=== PATIENT | male | born 1945 | race Caucasian/White ===

== ENCOUNTER 2019-07-30 12:35 | Inpatient (IN) ==
--- NOTE | 2019-07-30 12:54 | Emergency Department Note ---
Disposition Clinical Impression: Stroke Qualifiers: CVA mechanism: unspecified Qualified Code(s): I63.9 - Cerebral infarction, unspecified Disposition: Admitted As Inpatient Condition: Fair Referrals: Sal Hutchison MD [Primary Care Provider] - Forms: ED Satisfaction Letter Time of Disposition: 16:01 Neuro HPI - General Chief Complaint: ED Neuro Symptoms/Deficit Stated Complaint: "facial droop" Time Seen by Provider: 07/30/19 12:40 Source: patient Limitations: no limitations Nursing Notes Reviewed: Yes Vital Signs Reviewed: Yes - History of Present Illness HPI Narrative: 74-year-old male presents emergency department with concern for slurred speech and right-sided facial droop. His last known well was 10 PM last night. No history of stroke in the past. Does have history of hypertension. Was compl aining of intermittent headaches over the last several days. - Related Data Home Medications: Home Medications Medication Instructions Recorded Confirmed Acetylcysteine [Nac] 500 mg PO TIDWM 10/19/18 10/19/18 Albuterol Sulfate [Ventolin Hfa] 2 puff IH Q6H PRN 10/19/18 10/19/18 Benztropine [Cogentin] 1 mg PO BID 10/19/18 10/19/18 BuPROPion XL (24 HR) [Wellbutrin 150 mg PO DAILY 10/19/18 10/19/18 Xl] Budesonide/Formoterol 160/4.5 2 puff IH BIDR 10/19/18 10/19/18 [Symbicort 160/4.5] Bupropion HCl [Wellbutrin Xl] 300 mg PO DAILY 10/19/18 10/19/18 Calcium Carbonate/Vitamin D3 1 tab PO BID 10/19/18 10/19/18 [Calcium 500 + Vit D Caplet] Carbidopa/Levodopa/Entacapone 1 tab PO TID 10/19/18 10/19/18 [Stalevo 150 Tablet] Citalopram Hydrobromide 10 mg PO DAILY 10/19/18 10/19/18 [Citalopram HBr] Docusate [Colace] 100 mg PO BID 10/19/18 10/19/18 Lisinopril [Zestril] 5 mg PO DAILY 10/19/18 10/19/18 Multivitamin [One Daily 1 tab PO DAILY 10/19/18 10/19/18 Multivitamin] OLANZapine [Olanzapine Odt] 20 mg PO HS 10/19/18 10/19/18 Omeprazole [PriLOSEC] 20 mg PO DAILY 10/19/18 10/19/18 Ropinirole HCl [Requip] 2 mg PO TID 10/19/18 10/19/18 Simvastatin [Zocor] 20 mg PO HS 10/19/18 10/19/18 Trihexyphenidyl [Artane] 2 mg PO BID 10/19/18 10/19/18 Umeclidinium [place] [Incruse 62.5 mcg IH DAILY 10/19/18 10/19/18 Ellipta] Vitamin E Acetate [Vitamin E] 400 unit PO DAILY 10/19/18 10/19/18 Allergies/Adverse Reactions: Allergies Allergy/AdvReac Type Severity Reaction Status Date / Time No Known Allergies Allergy Verified 10/19/18 13:34 All systems ED: reviewed and negative except as stated. Review of Systems: As Per HPI Constitutional: Denies: fever Cardiovascular: Denies: chest pain Respiratory: Denies: dyspnea Gastrointestinal: Denies: abdominal pain Genitourinary: Denies: dysuria Musculoskeletal: Denies: neck pain Neurological: Reports: headache. Denies: numbness, paresthesias Past Medical History - Past Medical History Attestation: Yes The following information was validated with the patient. Medical history: Reports: arthritis, asthma, COPD, GERD, migraine Surgical history: Reports: herniorrhaphy Psychiatric history: Reports: anxiety, depression - Social History Smoking Status: Former smoker Alcohol use: Reports: none Drug use: Reports: none Physical Exam - General Limitations: no limitations General appearance: alert - Head Head exam: normocephalic - Eye Eye exam: Present: EOMI - ENT ENT exam: mucous membranes moist - Neck Neck exam: Present: trachea midline - Chest Chest inspection: Present: symmetric chest wall rise - Respiratory Respiratory exam: Present: normal lung sounds bilaterally. Absent: respiratory distress, accessory muscle use - Cardiovascular Cardiovascular exam: Present: regular rate, normal rhythm, normal heart sounds - Abdominal Exam Abdominal exam: Present: soft, Non-Tender. Absent: distention, guarding, rebound, rigidity - Extremities Exam Extremities exam: Present: normal capillary refill - Back Exam Back exam: Present: full ROM - Neurological Exam Neurological exam: Present: alert, oriented X3 - Psychiatric Psychiatric exam: Present: normal affect, normal mood - Skin Skin exam: Present: warm, dry, intact, normal color. Absent: rash Course Vital Signs Temperature 98.2 F 07/30/19 12:36 Pulse Rate 83 07/30/19 12:36 Respiratory Rate 18 07/30/19 12:36 Blood Pressure 185/95 07/30/19 12:36 O2 Sat by Pulse Oximetry 95 07/30/19 12:36 Temperature 98.2 F 07/30/19 12:36 Pulse Rate 83 07/30/19 12:36 Respiratory Rate 18 07/30/19 12:36 Blood Pressure 165/99 07/30/19 15:12 O2 Sat by Pulse Oximetry 94 07/30/19 12:56 Oxygen Delivery Oxygen Delivery Room Air Neuro Symptoms/Deficit - MDM Narrative Medical decision making narrative: 72-year-old male presents emergency department with concern for ischemic stroke. NIH initially was 4. CT of head and initially did not reveal any evidence of intracranial hemorrhage. There was however, some concern for artifact of the occipital lobes that the radiologist was getting a good view of that area. He recommended repeat CT scanning of the head. The repeat scan of the head revealed possible occipital lobe infarct with more pronunciation on the left concerning for infarct. These changes not consistent with current symptoms of right-sided facial droop and mild slurred speech. Patient given aspirin here in the emergency department. Stroke symptoms had improved significantly and facial droop was a lot better. Blood pressure was also improved without any management. Patient admitted. [address] Romero who agreed that patient was out of the window for TPA. He did want us to look for large vessel occlusion with CT angiogram and stated that if patient had evidence of this, to have him shipped to [facility]. Head CT 07/30/19 12:50 IMPRESSION: Apparent low-attenuation in the bilateral occipital lobes, may be related to artifacts versus reversible encephalopathy syndrome. Acute ischemia is considered less likely. MRI brain or repeat CT head is recommended for further evaluation. 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 The results were reported to Dr. Ruffin at 1:32 p.m. on July 30, 2019. D/ / Jose Perez MD / Jose Perez MD Interpreting Provider: Jose Perez MD Head CTA 07/30/19 13:08 IMPRESSION: No acute intracranial hemorrhage or mass effect. Unchanged loss of mcfadden-white differentiation in the occipital lobes, more pronounced on the left, concerning for age-indeterminate infarct. Further evaluation with MRI is recommended. No intracranial large vessel occlusion. D/ / David Martinez MD / David Martinez MD Interpreting Provider: David Martinez MD Vital Signs Temperature 98.2 F 07/30/19 12:36 Pulse Rate 83 07/30/19 12:36 Respiratory Rate 18 07/30/19 12:36 Blood Pressure 185/95 07/30/19 12:36 O2 Sat by Pulse Oximetry 95 07/30/19 12:36 Temperature 98.2 F 07/30/19 12:36 Pulse Rate 83 07/30/19 12:36 Respiratory Rate 18 07/30/19 12:36 Blood Pressure 165/99 07/30/19 15:12 O2 Sat by Pulse Oximetry 94 07/30/19 12:56 Oxygen Delivery Oxygen Delivery Room Air - Lab Data Result diagrams: 07/30/19 13:11 07/30/19 13:11 Lab Results 07/30/19 07/30/19 07/30/19 Range/Units 12:51 12:51 12:52 WBC (4.3-11.1) K/mcL RBC (4.19-5.50) M/mcL Hgb (12.9-16.9) g/dL Hct (37.5-50.1) % MCV (83.0-100.0) fL MCH (28.0-33.3) pg MCHC (31.6-35.5) g/dL RDW (11.5-14.5) % Plt Count (140-400) K/mcL MPV (9.4-12.4) fL PT (9.4-12.1) Seconds INR APTT (26.0-36.0) Seconds Sodium (136-145) mEq/L Potassium (3.5-5.1) mEq/L Chloride (98-107) mEq/L Carbon Dioxide (23-29) mEq/L BUN (8-23) mg/dL Creatinine (0.70-1.30) mg/dL Est GFR ( Amer) (> 60) Est GFR (Non-Af Amer) (> 60) BUN/Creatinine Ratio (6-26) Glucose (70-105) mg/dL POC Glucose 47 L* 107 H 102 H (70-99) mg/dL Calculated Osmolality (280-300) Calcium (8.6-10.3) mg/dL Troponin I (< 0.04) ng/mL 07/30/19 07/30/19 07/30/19 Range/Units 13:11 13:11 13:11 WBC 7.4 (4.3-11.1) K/mcL RBC 4.84 (4.19-5.50) M/mcL Hgb 13.6 (12.9-16.9) g/dL Hct 40.2 (37.5-50.1) % MCV 83.1 (83.0-100.0) fL MCH 28.1 (28.0-33.3) pg MCHC 33.8 (31.6-35.5) g/dL RDW 13.1 (11.5-14.5) % Plt Count 221 (140-400) K/mcL MPV 11.2 (9.4-12.4) fL PT 11.7 (9.4-12.1) Seconds INR 1.0 APTT 36.1 H (26.0-36.0) Seconds Sodium 137 (136-145) mEq/L Potassium 3.5 (3.5-5.1) mEq/L Chloride 104 (98-107) mEq/L Carbon Dioxide 24 (23-29) mEq/L BUN 12 (8-23) mg/dL Creatinine 0.89 (0.70-1.30) mg/dL Est GFR ( Amer) > 60 (> 60) Est GFR (Non-Af Amer) > 60 (> 60) BUN/Creatinine Ratio 13 (6-26) Glucose 85 (70-105) mg/dL POC Glucose (70-99) mg/dL Calculated Osmolality 283 (280-300) Calcium 9.5 (8.6-10.3) mg/dL Troponin I < 0.03 (< 0.04) ng/mL - EKG Data EKG attestation: Yes I reviewed and interpreted this EKG. EKG results narrative: 12:55 Heart rate 82 bpm, NM interval 149 ms, QRS duration 117 also has, QT 296 ms, left axis deviation. Sinus rhythm with no ischemic ST changes. NIH Stroke Scale - Level of Consciousness LOC: Alert - LOC Questions LOC Questions: Answers one correctly - LOC Commands LOC Commands: Performs both correctly - Best Gaze Best Gaze: Normal - Visual Visual: No visual loss - Facial Palsy Facial Palsy: Partial, total, or near-total paralysis of lower face - Motor Arms Motor Arm-Left: No drift for 10 seconds Motor Arm-Right: No drift for 10 seconds - Motor Legs Motor Leg-Left: No drift for 5 seconds Motor Leg-Right: No drift for 5 seconds - Limb Ataxia Limb Ataxia: Normal, No Ataxia - Sensory Sensory: Normal - Best Language Best Language: No aphasia - Dysarthria Dysarthria: Mild, slurs some words - Extinction and Inattention Extinction and Inattention: Normal - NIHSS Total Score NIHSS Total Score: 4 TPA Checklist - LKW: 3-4.5 hrs Add. Warnings/Precautions Patient/family understanding: The patient/family members have been counseled and understood the risk, benefit, and alternatives of treatment. Critical Care Time Critical Care Time: Yes Total Critical Care Time: 35 Attestation: Medical care time 35 minutes managing patient's altered mental status. Attestation Statement - Attestation Attestation: Patient was seen with resident physician. I reviewed the history, physical, assessment and plan, and agree with the findings. I also personally evaluated this patient and had [id number] time with this patient. 74-year-old male presents emergency Department with a chief complaint of facial droop and slurred speech. Patient was last known well at 10 PM last night. Family member said they saw him today at 11 and he had the symptoms. They say he has been complaining of a headache for a week or so now. He said his speech is significantly worse than usual. He has had some drooping of the right side of his face. They deny other complaints at this time. Review systems as above remainder negative. Physical exam vital signs are stable. ENT is unremarkable. Heart regular rhythm and rate. Lungs are clear. Abdomen is soft and nontender. Extremities show no signs of traumatic injury. Neurologically patient has a facial droop on the right side of the face. He also has slurred speech. Strength is good the upper and lower extremities. Skin no rashes. Psych normal. ED course. Stroke alert was called primarily because and wanted to make sure the patient did not have a intercranial hemorrhage. At this point he is far enough out that he will qualify for thrombolytic therapy, but I did want to delay care any further than we had to. His initial NIH was about 4. And hemodynamically he was stable on arrival and throughout his stay. Workup was consistent with ischemic stroke. Patient's symptoms are actually improving throughout his stay. We spoke with the hospitalist service agreed to accept the patient for admission. I agree with the resident physician assessment and plan. Critical care time 35 minutes. ED procedures.I reviewed the patient's EKG as well as the resident physician interpretation and I agree with the findings.
[2019-07-30] MEDS ORDERED: Isovue-370 500 ML BOTTLE IVP ONE (13:08)
[2019-07-30] MEDS ORDERED: Metoclopramide 10 MG/2 ML VIAL IVP ONE (13:09)
[2019-07-30 13:27] LABS: Hematocrit 40.2 % (37.5-50.1); Hemoglobin 13.6 g/dL (12.9-16.9); Mean Corpuscular HGB Conc 33.8 g/dL (31.6-35.5); Mean Corpuscular Hemoglobin 28.1 pg (28.0-33.3); Mean Corpuscular Volume 83.1 fL (83.0-100.0); Mean Platelet Volume 11.2 fL (9.4-12.4); Platelet Count 221 K/mcL (140-400); Red Blood Count 4.84 M/mcL (4.19-5.50); Red Cell Distribution Width 13.1 % (11.5-14.5); White Blood Count 7.4 K/mcL (4.3-11.1)
[2019-07-30 13:37] LABS: Prothrombin Time 11.7 Seconds (9.4-12.1)
[2019-07-30 13:40] LABS: Activated Partial Thrombo Time 36.1 Seconds (26.0-36.0)
[2019-07-30 13:45] LABS: BUN/Creatinine Ratio 13 (6-26); Blood Urea Nitrogen 12 mg/dL (8-23); Calcium 9.5 mg/dL (8.6-10.3); Carbon Dioxide 24 mEq/L (23-29); Chloride 104 mEq/L (98-107); Glucose 85 mg/dL (70-105); Osmolality,Calculated 283 (280-300); Potassium 3.5 mEq/L (3.5-5.1); Sodium 137 mEq/L (136-145); Troponin I < 0.03 ng/mL (< 0.04); eGFR For African Americans > 60 (> 60); eGFR For Non-African Americans > 60 (> 60)
[2019-07-30] MEDS ORDERED: Aspirin 81 MG TAB.CHEW PO STA (14:48)
[2019-07-30] MEDS ORDERED: Naloxone 0.4 MG/ML INJ IVP PRN (16:46)
[2019-07-30] MEDS ORDERED: Sennosides/Docusate Sodium TABLET PO PRN (16:55)
--- NOTE | 2019-07-30 17:02 | Internal Med History&Physical ---
Date of Encounter: 07/30/19 Time of Encounter: 16:40 Internal Medicine - H&P: HPI Chief complaint: Facial droop. Admitted From: Emergency Dept Plans for Post Hospital Care: Home History of present illness: Mr. Winters is a 74 year old male with a past medical history significant for Parkinson disease, anxiety and depression, COPD presented to the hospital because of the concern for the slurred speech and right-sided facial droop. Patient is not the best historian, so history is limited. According to the chart, patient was noticed to have right-sided facial droop and mild slurred speech by the family and was brought to the emergency department. His last well-known time was 10 PM last night. Patient endorses that he was feeling dizzy when he woke up in the morning. Denies fall, head injury, and history of stroke, history of CAD, history of PAD. Endorses history of hypertension, hyperlipidemia. In the emergency department, patient was found to have right- sided facial droop. Stroke alert was called. CT scan of the head was obtained which was concerning for left occipital lobe infarct. Patient was out of the TPA window, so it was not given. As per the recommendations of the neurologist on-call, CT angiogram was obtained stat to see the patient exhibited transfer to [facility]. CT angiogram negative for any critical stenosis. Laboratory workup did not show any gross abnormalities. Over time, patient facial droop on the right side improved. At the time of my interview, patient denies any complaints. Denies fever, chills, rigors, chest pain, shortness of breath. He does endorse mild dizziness. He has been walking with assist, has been doing fine. His facial droop is very minimal at the best. He has been given 325 mg of aspirin in the emergency department. Past Med Surg Social Fam HX - Past Medical History Medical history: arthritis, asthma, COPD, GERD, migraine Additional medical history: parkinsons. RLS Psychiatric history: anxiety, depression - Past Surgical History Surgical History: herniorrhaphy Additional surgical history: rt knee - Social History Smoking Status: Former smoker Alcohol use: none Drug use: none - Additional Family History Additional family history: Reviewed and non contributory Internal Medicine - H&P: Meds Albuterol Sulfate [Ventolin Hfa] 2 puff IH Q6H PRN 10/19/18 [History] Benztropine [Cogentin] 1 mg PO BID 10/19/18 [History] BuPROPion XL (24 HR) [Wellbutrin Xl] 150 mg PO DAILY 10/19/18 [History] Budesonide/Formoterol 160/4.5 [Symbicort 160/4.5] 2 puff IH BIDR 10/19/18 [History] Bupropion HCl [Wellbutrin Xl] 300 mg PO DAILY 10/19/18 [History] Calcium Carbonate/Vitamin D3 [Calcium 500 + Vit D Caplet] 1 tab PO BID 10/19/18 [History] Carbidopa/Levodopa/Entacapone [Stalevo 150 Tablet] 1 tab PO TID 10/19/18 [History] Citalopram Hydrobromide [Citalopram HBr] 10 mg PO DAILY 10/19/18 [History] Docusate [Colace] 100 mg PO DAILY 10/19/18 [History] Lisinopril [Zestril] 5 mg PO DAILY 10/19/18 [History] Multivitamin [One Daily Multivitamin] 1 tab PO DAILY 10/19/18 [History] OLANZapine [Olanzapine Odt] 20 mg PO HS 10/19/18 [History] Omeprazole [PriLOSEC] 20 mg PO DAILY 10/19/18 [History] Ropinirole HCl [Requip] 2 mg PO TID 10/19/18 [History] Simvastatin [Zocor] 20 mg PO HS 10/19/18 [History] Umeclidinium [place] [Incruse Ellipta] 62.5 mcg IH DAILY 10/19/18 [History] Vitamin E Acetate [Vitamin E] 400 unit PO DAILY 10/19/18 [History] Acetylcysteine [Z-Wcbviu-q-Cysteine] 600 mg PO TID 07/30/19 [History] Aspirin [Lo-Dose Aspirin EC] 81 mg PO DAILY 07/30/19 [History] Sennosides/Docusate Sodium [Docusate Sodium-Senna Tablet] 1 each PO DAILY PRN 07/30/19 [History] Trihexyphenidyl HCl 5 mg PO DAILY 07/30/19 [History] Allergy/AdvReac Type Severity Reaction Status Date / Time No Known Allergies Allergy Verified 10/19/18 13:34 All Systems PM: A 10-system review of systems was performed and is negative for pertinent findings except as documented above in the HPI. Review of systems: General: Negative for fever, chills, rigors. HEENT: Negative for neck swelling, discharge from nose, discharge from ears. EYES: Negative for any discharge from the eyes. Respiratory: Negative for shortness of breath, orthopnea, exertional dyspnea. Cardiovascular: Negative for chest pain, shortness of breath, orthopnea, PND. Gastrintestical: Negative for diarrhea, constipation, blood in stools. Genitourinary: Negative for dysuria, hematuria, nocturia, increased frequency of urine. Hematological: Negative for blood loss, negative for active cancer. Neurological: See HPI Endocrinology: Negative for constipation, polyuria, polydipsia. Integumentary: Negative for rash, wounds, ulcers. Psychiatric: Histroy of anxiety and depression, currnetly lookign calm - Constitutional Vitals: Temp Pulse Resp BP Pulse Ox 98.2 F 83 18 165/99 94 07/30/19 12:36 07/30/19 12:36 07/30/19 12:36 07/30/19 15:12 07/30/19 12:56 Exam: General: Alert and oriented, no physical distress, able to follow commands. HEENT: No thyromegaly, no lymphadenopathy, no discharge. Eyes: No discharge. Normal conjuctiva, no icterus Respiratory: Normal vesicular breathing, no added sounds, breathing equal in both sides. CVS: Normal heart sounds, no murmurs, regular rhthm, no edema Extremities: No peripheral edema, peripheral pulses intact. Lymph nodes: No lymphadenopathy Gastrointestinal: Soft, nontender abdomen, normal abdominal sounds. No distention noted. Genitourinary: No paravertebral tenderness. Skin: No rash, ulcers or wound. Neurological: Alert and oriented. Power 5/5 in all extremities, no loss sensations appreciatd in extremities or face. Cranial nerves II-XII intact. No facial droop appreciated at this point. Reflexes 2+ at knees, ankles, biceps and triceps. Finger to nose test normal. Internal Med - H&P Results - Labs CBC & Chem 7: 07/30/19 13:11 07/30/19 13:11 Labs: Short CBC 07/30/19 Range/Units 13:11 WBC 7.4 (4.3-11.1) K/mcL Hgb 13.6 (12.9-16.9) g/dL Hct 40.2 (37.5-50.1) % Plt Count 221 (140-400) K/mcL BMP 07/30/19 13:11 Sodium 137 Potassium 3.5 Chloride 104 Carbon Dioxide 24 BUN 12 Creatinine 0.89 Glucose 85 Calcium 9.5 Cardiac Enzymes 07/30/19 Range/Units 13:11 Troponin I < 0.03 (< 0.04) ng/mL - Impressions ITS Impressions Head CT 07/30/19 12:50 IMPRESSION: Apparent low-attenuation in the bilateral occipital lobes, may be related to artifacts versus reversible encephalopathy syndrome. Acute ischemia is considered less likely. MRI brain or repeat CT head is recommended for further evaluation. 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 The results were reported to Dr. Ruffin at 1:32 p.m. on July 30, 2019. D/ / Jose Perez MD / Jose Perez MD Interpreting Provider: Jose Perez MD Head CTA 07/30/19 13:08 IMPRESSION: No acute intracranial hemorrhage or mass effect. Unchanged loss of mcfadden-white differentiation in the occipital lobes, more pronounced on the left, concerning for age-indeterminate infarct. Further evaluation with MRI is recommended. No intracranial large vessel occlusion. D/ / David Martinez MD / David Martinez MD Interpreting Provider: David aMrtinez MD - Assessment and Plan (1) CVA (cerebral vascular accident) Current Visit: Yes Status: Acute Assessment and plan: Presented with a slurred speech and facial droop. Currently symptoms have improved. CT scan of the head concerning for occipital lobe infarct with mode pronunciation on the left as per neurologist review. Also showed moderate ventriculomegaly. CTA negative for any critical stenosis. Patient symptoms continues to improve. He has been given 325 mg of aspirin in the emergency department. EKG negative for ischemic chages or arrythmias Neurological checks and [facility] Continous telemetry Obtain MRI Obtain echo Neurology consult Continue aspirin COntinue statins Obtain lipid panel Obtain hga1c Continue to monitor Qualifiers: CVA mechanism: unspecified Qualified Code(s): I63.9 - Cerebral infarction, unspecified (2) Depression Current Visit: Yes Status: Acute Assessment and plan: Hx of depression, likely due to parkinsons disease Continue bupropion and citalopram Qualifiers: Depression Type: unspecified Qualified Code(s): F32.9 - Major depressive disorder, single episode, unspecified (3) Parkinson disease Current Visit: Yes Status: Acute Assessment and plan: Hx of parkisnosn disease COntinue home meds (4) COPD (chronic obstructive pulmonary disease) Current Visit: Yes Status: Acute Assessment and plan: NOt an active smoker currnetly NOt in exacerbation Continue home inhalers Qualifiers: COPD type: unspecified COPD Qualified Code(s): J44.9 - Chronic obstructive pulmonary disease, unspecified (5) Hyperlipidemia Current Visit: Yes Status: Acute Assessment and plan: Continue simvastatin Qualifiers: Hyperlipidemia type: unspecified Qualified Code(s): E78.5 - Hyperlipidemia, unspecified (6) Constipated Current Visit: Yes Status: Acute Assessment and plan: Continue senna and colace Qualifiers: Constipation type: unspecified constipation type Qualified Code(s): K59.00 - Constipation, unspecified (7) GERD (gastroesophageal reflux disease) Current Visit: Yes Status: Acute Assessment and plan: Continue home omeprazole Qualifiers: Esophagitis presence: esophagitis presence not specified Qualified Code(s): K21.9 - Gastro-esophageal reflux disease without esophagitis (8) Hypertension Current Visit: Yes Status: Acute Assessment and plan: BP in reasonable range Cont lisinopril Qualifiers: Hypertension type: essential hypertension Qualified Code(s): I10 - Essential (primary) hypertension (9) DVT prophylaxis Current Visit: Yes Status: Acute Assessment and plan: Radha solano - Time Spent With Patient Total time spent is greater than 50% in coordination of care (as documented) at patient's floor/unit and/or counseling patient:
[2019-07-30] MEDS ORDERED: Ipratropium/Albuterol Neb 3 ML IH PRN (17:31)
[2019-07-30] MEDS: Budesonide/Formoterol 160/4.5 1 PUFF INH IH SCH (20:02)
[2019-07-30] MEDS: OLANZapine 10 MG TAB.RAPDIS PO SCH (20:25)
[2019-07-30] MEDS: *HR* Acetylcysteine 20% 600 MG/3 ML ORAL SYRINGE PO SCH (20:26)
[2019-07-30] MEDS: rOPINIRole 1 MG TABLET PO SCH (20:26)
[2019-07-30] MEDS: Carbidopa/Levodopa 25/100 TABLET PO SCH (21:15)
[2019-07-31 04:40] LABS: Basophils % 0.3 %; Eosinophils # 0.1 K/mcL (0.0-0.6); Eosinophils % 0.7 %; Hematocrit 39.4 % (37.5-50.1); Hemoglobin 13.3 g/dL (12.9-16.9); Immature Granulocytes % 0.2 % (0-4); Lymphocytes # 1.8 K/mcL (0.6-4.6); Lymphocytes % 20.5 %; Mean Corpuscular HGB Conc 33.8 g/dL (31.6-35.5); Mean Corpuscular Hemoglobin 28.3 pg (28.0-33.3); Mean Corpuscular Volume 83.8 fL (83.0-100.0); Mean Platelet Volume 11.7 fL (9.4-12.4); Monocytes # 0.5 K/mcL (0.0-1.3); Monocytes % 6.1 %; Neutrophils # 6.4 K/mcL (1.6-8.9); Platelet Count 227 K/mcL (140-400); Red Cell Distribution Width 13.1 % (11.5-14.5); Segmented Neutrophils % 72.2 %; White Blood Count 8.9 K/mcL (4.3-11.1)
[2019-07-31 04:59] LABS: Chol/HDL Ratio 4.8 (0-4.9)
[2019-07-31 05:01] LABS: BUN/Creatinine Ratio 17 (6-26); Blood Urea Nitrogen 16 mg/dL (8-23); Calcium 9.3 mg/dL (8.6-10.3); Carbon Dioxide 26 mEq/L (23-29); Chloride 103 mEq/L (98-107); Glucose 145 mg/dL (70-105); Magnesium 2.2 mg/dL (1.6-2.6); Osmolality,Calculated 288 (280-300); Potassium 3.4 mEq/L (3.5-5.1); Sodium 137 mEq/L (136-145); eGFR For African Americans > 60 (> 60); eGFR For Non-African Americans > 60 (> 60)
[2019-07-31] MEDS: *HR* Enoxaparin 40 MG/0.4 ML SYRINGE SQ SCH (05:50)
[2019-07-31] MEDS: Tiotropium 18 MCG inhalation IH SCH (08:25)
[2019-07-31] MEDS: Budesonide/Formoterol 160/4.5 1 PUFF INH IH SCH ×2 (08:25→20:03)
[2019-07-31] MEDS: rOPINIRole 1 MG TABLET PO SCH ×3 (09:54→20:03)
[2019-07-31] MEDS: Multivit/Ca/Min/Fe/FA 1 TAB TABLET PO SCH (09:55)
[2019-07-31] MEDS: BuPROPion XL (24 HR) 150 MG TABLET PO SCH (09:57)
[2019-07-31] MEDS: Aspirin Enteric Coated 81 MG Tablet PO SCH (09:57)
[2019-07-31] MEDS: Cholecalciferol (D-3) 1,000 UNIT (25MCG) TABLET PO SCH (09:57)
[2019-07-31] MEDS: Carbidopa/Levodopa 25/100 TABLET PO SCH ×3 (10:02→20:03)
[2019-07-31] MEDS: *HR* Acetylcysteine 20% 600 MG/3 ML ORAL SYRINGE PO SCH ×3 (10:04→20:05)
[2019-07-31] MEDS: Vitamin E 200 UNIT (90MG) CAPSULE PO SCH (10:04)
[2019-07-31 11:42] LABS: Bilirubin,Urine Negative (Negative); Blood,Urine Negative (Negative); Clarity,Urine Clear (Clear); Color,Urine Yellow (Yellow); Glucose,Urine (UA) Normal (Normal); Ketones,Urine Negative (Negative); Leukocyte Esterase,Urine Negative (Negative); Nitrite,Urine Negative (Negative); Protein,Urine Negative (Neg-Trace); Specific Gravity,Urine 1.009 (1.010-1.025); Urobilinogen,Urine Normal (Normal)
--- NOTE | 2019-07-31 12:59 | Internal Med Progress Note ---
Hospitalist Progress Note - Encounter Date of Encounter: 07/31/19 Time of Encounter: 09:45 - Subjective Interval History: Seen at bedside. No acute complaints today. Denies dizziness, headache. Is feeling overall OK. No events overngith. - Exam Vitals: Temp Pulse Resp BP Pulse Ox 97.8 F 88 18 122/95 92 07/31/19 10:22 07/31/19 10:22 07/31/19 10:22 07/31/19 10:22 07/31/19 10:12 Exam: General: Alert and oriented, no physical distress, able to follow commands. Respiratory: Normal vesicular breathing, no added sounds, breathing equal in both sides. CVS: Normal heart sounds, no murmurs, regular rhthm, no edema Extremities: No peripheral edema, peripheral pulses intact. Lymph nodes: No lymphadenopathy Gastrointestinal: Soft, nontender abdomen, normal abdominal sounds. No distention noted. Genitourinary: No paravertebral tenderness. Skin: No rash, ulcers or wound. Neurological: Alert and oriented. Power 5/5 in all extremities, no loss sensations appreciatd in extremities or face. Cranial nerves II-XII intact. No facial droop appreciated at this point. Reflexes 2+ at knees, ankles, biceps and triceps. Finger to nose test normal. - Assessment and Plan (1) CVA (cerebral vascular accident) Current Visit: Yes Status: Acute Assessment and Plan: Presented with a slurred speech and facial droop. Currently asymptomatic. CT scan of the head concerning for occipital lobe infarct with mode pronunciation on the left as per neurologist review. Also showed moderate ventriculomegaly. CTA negative for any critical stenosis. Patient symptoms continues to improve. EKG negative for ischemic chages or arrythmias Current [facility] 1 Echo showed normal EF wiht no PFO. Continous telemetry, no arrytmias recorded Obtain MRI Neurology consult Continue aspirin COntinue statins (2) Depression Current Visit: Yes Status: Acute Assessment and Plan: Hx of depression, likely due to parkinsons disease Continue bupropion and citalopram (3) Parkinson disease Current Visit: Yes Status: Acute Assessment and Plan: Hx of parkisnosn disease COntinue home meds (4) COPD (chronic obstructive pulmonary disease) Current Visit: Yes Status: Acute Assessment and Plan: NOt an active smoker currnetly NOt in exacerbation Continue home inhalers (5) Hyperlipidemia Current Visit: Yes Status: Acute Assessment and Plan: Continue simvastatin (6) Constipated Current Visit: Yes Status: Acute Assessment and Plan: Continue senna and colace (7) GERD (gastroesophageal reflux disease) Current Visit: Yes Status: Acute Assessment and Plan: Continue home omeprazole (8) Hypertension Current Visit: Yes Status: Acute Assessment and Plan: BP in reasonable range Cont lisinopril (9) DVT prophylaxis Current Visit: Yes Status: Acute Assessment and Plan: Everr stephenx - Time Spent with Patient Total time spent is greater than 50% in coordination of care (as documented) at patient's floor/unit and/or counseling patient: Internal Medicine: Result - Labs CBC & Chem 7: 07/31/19 03:48 07/31/19 03:48 Labs: Short CBC 07/30/19 07/31/19 Range/Units 13:11 03:48 WBC 7.4 8.9 (4.3-11.1) K/mcL Hgb 13.6 13.3 (12.9-16.9) g/dL Hct 40.2 39.4 (37.5-50.1) % Plt Count 221 227 (140-400) K/mcL Neutrophils # 6.4 (1.6-8.9) K/mcL BMP 07/30/19 07/31/19 13:11 03:48 Sodium 137 137 Potassium 3.5 3.4 L Chloride 104 103 Carbon Dioxide 24 26 BUN 12 16 Creatinine 0.89 0.96 Glucose 85 145 H Calcium 9.5 9.3 Cardiac Enzymes 07/30/19 Range/Units 13:11 Troponin I < 0.03 (< 0.04) ng/mL Urine 07/31/19 Range/Units 11:30 Urine Color Yellow (Yellow) Urine Clarity Clear (Clear) Urine pH 7.0 (5.0-8.0) pH Units Ur Specific [place] 1.009 L (1.010-1.025) Urine Protein Negative (Neg-Trace) mg/dL Urine Glucose (UA) Normal (Normal) mg/dL - ABG Interpretation ABG results: PT/INR, D-dimer PT 11.7 Seconds (9.4-12.1) 07/30/19 13:11 - Impressions Impressions Head CT 07/30/19 12:50 IMPRESSION: Apparent low-attenuation in the bilateral occipital lobes, may be related to artifacts versus reversible encephalopathy syndrome. Acute ischemia is considered less likely. MRI brain or repeat CT head is recommended for further evaluation. 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 The results were reported to Dr. Ruffin at 1:32 p.m. on July 30, 2019. D/ / Jose Perez MD / Jose Perez MD Interpreting Provider: Jose Perez MD Head CTA 07/30/19 13:08 IMPRESSION: No acute intracranial hemorrhage or mass effect. Unchanged loss of mcfadden-white differentiation in the occipital lobes, more pronounced on the left, concerning for age-indeterminate infarct. Further evaluation with MRI is recommended. No intracranial large vessel occlusion. D/ / David Martinez MD / David Martinez MD Interpreting Provider: David Martinez MD Echocardiogram 07/31/19 08:00 Impressions: LVEF 60-65%. Normal LV chamber size and function. Basal sigmoid septum. Mild left ventricular diastolic dysfunction. Normal right ventricular structure and function. No evidence of a PFO with agitated saline contrast. No significant valvular dysfunction. No evidence of pulmonary hypertension. Left Ventricular Wall Motion: Rest Echo Findings All wall segments showed normal motion. Findings: Study Quality * Technically sub-optimal due to poor echocardiographic windows. ECG Findings * Sinus rhythm with BBB. Left Ventricle * LVEF 60-65%. * Normal LV chamber size and function. * Basal sigmoid septum. * Mild left ventricular diastolic dysfunction. * Atypical septal motion consistent with bundle branch block. Right Ventricle * Normal right ventricular structure and function. Left Atrium * Mildly dilated left atrium. Right Atrium * Normal right atrial size. Interatrial Septum * No evidence of a PFO with agitated saline contrast. Aortic Valve * Trileaflet aortic valve with normal function. * No aortic regurgitation. * No aortic stenosis. Mitral Valve * Normal mitral valve structure and function. * No mitral regurgitation. * No mitral stenosis. Tricuspid Valve * Normal tricuspid valve structure and function. * Trace tricuspid regurgitation. * No evidence of pulmonary hypertension. Pulmonic Valve * Pulmonic valve is not well visualized. * No pulmonic regurgitation. Aorta * Normally sized aortic root. Pericardium * The pericardium appears normal. IVC * The IVC is not well evaluated. Pulmonary Artery * Normal visualized portions of the main pulmonary artery. Consult Discharge Plan - Plan Referrals: [facility] [place],Sal Stapleton MD [Primary Care Provider] - (1) CVA (cerebral vascular accident) Qualifiers: CVA mechanism: unspecified Qualified Code(s): I63.9 - Cerebral infarction, unspecified (2) Depression Qualifiers: Depression Type: unspecified Qualified Code(s): F32.9 - Major depressive d isorder, single episode, unspecified (4) COPD (chronic obstructive pulmonary disease) Qualifiers: COPD type: unspecified COPD Qualified Code(s): J44.9 - Chronic obstructive pulmonary disease, unspecified (5) Hyperlipidemia Qualifiers: Hyperlipidemia type: unspecified Qualified Code(s): E78.5 - Hyperlipidemia, unspecified (6) Constipated Qualifiers: Constipation type: unspecified constipation type Qualified Code(s): K59.00 - Constipation, unspecified (7) GERD (gastroesophageal reflux disease) Qualifiers: Esophagitis presence: esophagitis presence not specified Qualified Code(s): K21.9 - Gastro-esophageal reflux disease without esophagitis (8) Hypertension Qualifiers: Hypertension type: essential hypertension Qualified Code(s): I10 - Essential (primary) hypertension
--- NOTE | 2019-07-31 15:31 | Neurology - Consult Note ---
Date of Encounter: 07/31/19 Time of Encounter: 15:28 Assessment and Plan (1) Slurred speech Current Visit: Yes Status: Acute This patient has a long history of Parkinson's disease it is not uncommon for individuals with Parkinson's disease to have speech difficulties including dysarthria, and slurring. At this juncture I see no evidence of right sided facial droop. However he certainly does have stroke risk factors for pertinent to obtain an MRI scan of the brain. Further recommendations will be made pending the outcome of the MRI scan. For now I would recommend maintaining his aspirin and statin therapy as they are currently. He should also maintain his carbidopa levodopa 25/101-1/2 pills 3 times a day. History of Present Illness HPI: Mr. 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 In any regard he is admitted to [facility] secondary to slurred speech and right facial droop. He was suspected that he may have had a stroke and was subsequently hospitalized. CT scan of the brain was obtained and was concerning for a left occipital infarct. CTA scan of the brain was unrevealing. At this juncture Abel seems to be back to his normal baseline function. He has no complaints of headache no complaints of paresthesias or weakness. His speech is generally dysarthric due to his Parkinson's disease. Past Med Surg Social Fam HX - Past Medical History Medical history: arthritis, asthma, COPD, GERD, migraine Additional medical history: parkinsons. RLS Psychiatric history: anxiety, depression - Past Surgical History Surgical History: herniorrhaphy Additional surgical history: abdominal, rt knee - Social History Smoking Status: Former smoker Alcohol use: none Drug use: none - Family History Mother History Unknown: Yes Cause of : old age Father History Unknown: Yes Cause of : old age Medications and Allergies Albuterol Sulfate [Ventolin Hfa] 2 puff IH Q6H PRN 10/19/18 [History] Benztropine [Cogentin] 1 mg PO BID 10/19/18 [History] BuPROPion XL (24 HR) [Wellbutrin Xl] 150 mg PO DAILY 10/19/18 [History] Budesonide/Formoterol 160/4.5 [Symbicort 160/4.5] 2 puff IH BIDR 10/19/18 [History] Bupropion HCl [Wellbutrin Xl] 300 mg PO DAILY 10/19/18 [History] Calcium Carbonate/Vitamin D3 [Calcium 500 + Vit D Caplet] 1 tab PO BID 10/19/18 [History] Carbidopa/Levodopa/Entacapone [Stalevo 150 Tablet] 1 tab PO TID 10/19/18 [Histor y] Citalopram Hydrobromide [Citalopram HBr] 10 mg PO DAILY 10/19/18 [History] Docusate [Colace] 100 mg PO DAILY 10/19/18 [History] Lisinopril [Zestril] 5 mg PO DAILY 10/19/18 [History] Multivitamin [One Daily Multivitamin] 1 tab PO DAILY 10/19/18 [History] OLANZapine [Olanzapine Odt] 20 mg PO HS 10/19/18 [History] Omeprazole [PriLOSEC] 20 mg PO DAILY 10/19/18 [History] Ropinirole HCl [Requip] 2 mg PO TID 10/19/18 [History] Simvastatin [Zocor] 20 mg PO HS 10/19/18 [History] Umeclidinium [place] [Incruse Ellipta] 62.5 mcg IH DAILY 10/19/18 [History] Vitamin E Acetate [Vitamin E] 400 unit PO DAILY 10/19/18 [History] Acetylcysteine [D-Ofyjol-g-Cysteine] 600 mg PO TID 07/30/19 [History] Aspirin [Lo-Dose Aspirin EC] 81 mg PO DAILY 07/30/19 [History] Sennosides/Docusate Sodium [Docusate Sodium-Senna Tablet] 1 each PO DAILY PRN 07/30/19 [History] Trihexyphenidyl HCl 5 mg PO DAILY 07/30/19 [History] Allergy/AdvReac Type Severity Reaction Status Date / Time No Known Allergies Allergy Verified 10/19/18 13:34 All Systems: The remainder of the systems were reviewed and are negative Review of Systems: The balance of the systems review is negative. Physical Examination - Vital Signs Vital Signs: Initial Vital Signs Temp Pulse Resp BP Pulse Ox 98.2 F 83 18 185/95 95 07/30/19 12:36 07/30/19 12:36 07/30/19 12:36 07/30/19 12:36 07/30/19 12:36 - Exam Exam: General Examination: *CONSTITUTIONAL: normal *GENERAL APPEARANCE OF PATIENT appears healthy and well groomed *EYES: pupils equal, round, reactive to light and accommodation, conjunc tiva clear without masses or ulcerations, fundi normal. *CARDIOVASCULAR no peripheral edema, distal temperature normal, dorsalis pedis pulses normal. Refer to vital signs Musculoskeletal: *GAIT AND STATION slow and shuffling, typically parkinsonian. *ASSESSMENT OF MUSCLE STRENGTH IN THE UPPER AND LOWER EXTREMITIES normal strength and bulk of the upper and lower extremities. *MUSCLE TONE IN THE UPPER AND LOWER EXTREMITIES normal. No abnormal m ovements, fasciculations or atrophy identified. Patient does have masked facies. Neurological: *ORIENTATION to time and place *RECURRENT AND REMOTE MEMORY intact *ATTENTION AND CONCENTRATION are normal *LANGUAGE FUNCTION no significant aphasia. Dysarthia is noted. *FUND OF KNOWLEDGE aware of current events, past history, vocabulary *MENTAL attention span and concentration normal. *CN II optic fundi were normal, no papilledema noted. *CN III,IV, PERRLA extraocular eye movements were full, no nystagmus and no ptosis noted. *CN V shows normal sensation and jaw opens symmetrically. *CN VII shows normal facial movement symmetrically, upper and lower bilaterally. *CN VIII shows no significant hearing loss on examination in the office. *CN IX,,X palate elevated symmetrically and normal gag reflex was noted. *CN XI normal strength in the sternocleidomastoid muscles, symmetrical shoulder shrugging. *CN XII tongue protruded in the midline, with normal strength and mo vement. *SENSORY EXAMINATION pinprick sensation intact, and light touch(vibration sense). *REFLEXES: deep tendon reflexes were normal and symmetrical , grade 1/4 diffusely, no pathological reflexes were noted. *CEREBELLAR TESTING normal finger to nose, heel/knee/mendieta. *PAIN LEVEL 0 Results - Laboratory Findings CBC and BMP: 07/31/19 03:48 07/31/19 03:48 Abnormal lab findings: Abnormal lab results APTT 36.1 Seconds (26.0-36.0) H 07/30/19 13:11 Potassium 3.4 mEq/L (3.5-5.1) L 07/31/19 03:48 Glucose 145 mg/dL (70-105) H 07/31/19 03:48 POC Glucose 102 mg/dL (70-99) H 07/30/19 12:52 HDL Cholesterol 31 mg/dL (40-59) L 07/31/19 03:48 Ur Specific [place] 1.009 (1.010-1.025) L 07/31/19 11:30 Consult Discharge Plan - Plan Referrals: Sal Hutchison MD [Primary Care Provider] -
[2019-07-31] MEDS ORDERED: Acetaminophen 325 MG TABLET PO PRN (20:00)
[2019-07-31] MEDS: OLANZapine 10 MG TAB.RAPDIS PO SCH (20:03)
[2019-08-01 04:19] LABS: BUN/Creatinine Ratio 15 (6-26); Blood Urea Nitrogen 15 mg/dL (8-23); Carbon Dioxide 23 mEq/L (23-29); Chloride 105 mEq/L (98-107); Glucose 96 mg/dL (70-105); Osmolality,Calculated 283 (280-300); Potassium 3.9 mEq/L (3.5-5.1); Sodium 136 mEq/L (136-145); eGFR For African Americans > 60 (> 60); eGFR For Non-African Americans > 60 (> 60)
[2019-08-01] MEDS: *HR* Enoxaparin 40 MG/0.4 ML SYRINGE SQ SCH (05:39)
[2019-08-01] MEDS: Budesonide/Formoterol 160/4.5 1 PUFF INH IH SCH ×2 (07:35→20:20)
[2019-08-01] MEDS: Tiotropium 18 MCG inhalation IH SCH (07:36)
[2019-08-01] MEDS: rOPINIRole 1 MG TABLET PO SCH ×3 (09:44→20:25)
[2019-08-01] MEDS: Cholecalciferol (D-3) 1,000 UNIT (25MCG) TABLET PO SCH (09:45)
[2019-08-01] MEDS: Carbidopa/Levodopa 25/100 TABLET PO SCH ×3 (09:46→20:25)
[2019-08-01] MEDS: BuPROPion XL (24 HR) 150 MG TABLET PO SCH (09:46)
[2019-08-01] MEDS: Multivit/Ca/Min/Fe/FA 1 TAB TABLET PO SCH (09:46)
[2019-08-01] MEDS: Aspirin Enteric Coated 81 MG Tablet PO SCH (09:46)
[2019-08-01] MEDS: Vitamin E 200 UNIT (90MG) CAPSULE PO SCH (09:46)
[2019-08-01] MEDS: *HR* Acetylcysteine 20% 600 MG/3 ML ORAL SYRINGE PO SCH ×3 (09:48→20:25)
--- NOTE | 2019-08-01 10:22 | Electrocardiograph Report ---
[place] [id number] Test Date: 2019-07-30 Pat Name: Abel Winters Department: EXAM6 Room: 2NE19 Gender: M Chocolatier: : 1945 Requested By: Chapito Ruffin Order Number: [id number] Reading MD: Abel Horn Measurements Intervals [place] Rate: 82 P: 33 ND: 149 QRS: -27 QRSD: 117 T: 37 QT: 396 QTc: 463 Interpretive Statements Sinus rhythm Possible left ventricular hypertrophy Electronically Signed On 08-01-2019 10:21:13 EDT by Abel Horn
[2019-08-01 10:28] LABS: Estimated Average Glucose 114 mg/dl
--- NOTE | 2019-08-01 10:33 | Neurology Progress Note ---
<Arron Green J - Last Filed: 08/01/19 10:29> Date of Encounter: 08/01/19 Time of Encounter: 10:29 Assessment and Plan (1) Slurred speech Current Visit: Yes Status: Acute Patient has slurred speech at baseline per his recollection No evidence of facial droop seen, the neurological exam is non focal with the exception of Parkinson sx At this time we are awaiting MRI of the brain to r/o an ischemic event given presenting sx and risk factors Further recommendation spending w/u; otherwise c/w ASA, Statin and Sinemet therapy as previously stated Subjective Principal diagnosis: slurred speech Interval history: The chart was reviewed and the patient was seen at the bedside today. Clinically, the patient remains stable and there is no acute developments overnight. He reports that his speech is at baseline and notes some slurring chronically. Otherwise, he has no new complaints. I discussed obtaining an MRI of the brain today to further evaluate for any ischemia and he is agreeable. Objective - Constitutional Vitals: Temp Pulse Resp BP Pulse Ox 97.6 F 78 16 147/95 96 08/01/19 07:00 08/01/19 07:00 08/01/19 07:00 08/01/19 07:00 08/01/19 07:00 Exam: Examination: General Examination: *CONSTITUTIONAL: Alert and oriented x3, no acute distress *GENERAL APPEARANCE OF PATIENT 74 elderly M who appears overall healthy and appears stated age *EYES: pupils equal, round, reactive to light and accommodation, conjunctiva clear without masses or ulcerations, fundi normal. *CARDIOVASCULAR: no peripheral edema, distal temperature normal, dorsalis pedis pulses normal. Refer to vital signs * MUSCULOSKELETAL: *GAIT AND STATION: shuffling gait and bradykinesia with movement *ASSESSMENT OF MUSCLE STRENGTH IN THE UPPER AND LOWER EXTREMITIES bilateral deltoid, bicep, tricep, clinical trials specialist strength, hip flexors ,anterior tibialis, dorsoflexion of the foot 5/5 *MUSCLE TONE IN THE UPPER AND LOWER EXTREMITIES Resting tremor present in the right hand, decreased amplitude and dysrhythmic movement in b/l hands Neurological: *ORIENTATION to person, situation, time and place *LANGUAGE AND FUNCTION no significant aphasia but speech is slurred which is chronic with h/o Parkinsons *ATTENTION AND CONCENTRATION are normal *LANGUAGE FUNCTION no significant aphasia *FUND OF KNOWLEDGE aware of current events, past history, vocabulary *MENTAL attention span and concentration normal. *CN II optic fundi were normal, no papilledema noted. *CN III,IV, PERRLA extraocular eye movements were full, no nystagmus and no ptosis noted. *CN V shows normal sensation and jaw opens symmetrically but has masked facies *CN VII shows normal facial movement symmetrically, upper and lower bilaterally. *CN VIII shows no significant hearing loss on exam *CN IX-Xpalate elevated symmetrically *CN XI normal strength in the sternocleidomastoid muscles, symmetrical shoulder shrugging. *CN XII tongue protruded in the midline, with normal strength and movement. *SENSORY EXAMINATION pinprick and light touch intact *REFLEXES: deep tendon reflexes were normal and symmetrical , grade 1/4 diffusely, no pathological reflexes were noted. *CEREBELLAR TESTING normal finger to nose, heel/knee/mendieta *PAIN LEVEL 0/10 Results - Laboratory Findings CBC and BMP: 07/31/19 03:48 08/01/19 03:38 Abnormal lab findings: Abnormal lab results APTT 36.1 Seconds (26.0-36.0) H 07/30/19 13:11 Potassium 3.4 mEq/L (3.5-5.1) L 07/31/19 03:48 Glucose 145 mg/dL (70-105) H 07/31/19 03:48 POC Glucose 102 mg/dL (70-99) H 07/30/19 12:52 HDL Cholesterol 31 mg/dL (40-59) L 07/31/19 03:48 Ur Specific [place] 1.009 (1.010-1.025) L 07/31/19 11:30 Consult Discharge Plan - Plan [place] [facility] [place] - <Natan Canales - Last Filed: 08/01/19 16:52> Date of Encounter: 08/01/19 Assessment and Plan (1) Slurred speech Current Visit: Yes Status: Acute I have personally performed a jwej-as-murw assessment of the patient and have reviewed the PA/CROWN IRONER OPERATOR note. My impressions are as follows: I agree with the assessment and plan as presented above by the ADHESIVE BANDAGE MAKING OPERATOR. At this juncture we are still waiting for the MRI scan of the brain. Further recommendations will be made tomorrow. If the MRI reveals no evidence of new infarction then we will maintain his aspirin and statin therapy as they are currently. If the MRI does reveal a new infarct then I will discontinue the aspirin and start Plavix. Subjective Interval history: The chart was reviewed, the patient was seen and examined independently. He seems like he is back to his normal baseline. He has normal strength of both upper extremities. He does have dysarthric speech however this is a long-term problem. He is been ambulating to the bathroom. MRI scan of the brain is still pending. Objective - Constitutional Vitals: Temp Pulse Resp BP Pulse Ox 98.1 F 102 16 130/91 98 08/01/19 15:25 08/01/19 15:25 08/01/19 15:25 08/01/19 15:25 08/01/19 15:25 Exam: I have personally performed a qfsz-df-roxa assessment of the patient and have reviewed the PA/CROWN IRONER OPERATOR note. My impressions are as follows: I agree with the neurologic examination is documented above. Results - Laboratory Findings CBC and BMP: 07/31/19 03:48 08/01/19 03:38 Abnormal lab findings: Abnormal lab results APTT 36.1 Seconds (26.0-36.0) H 07/30/19 13:11 Potassium 3.4 mEq/L (3.5-5.1) L 07/31/19 03:48 Glucose 145 mg/dL (70-105) H 07/31/19 03:48 POC Glucose 102 mg/dL (70-99) H 07/30/19 12:52 HDL Cholesterol 31 mg/dL (40-59) L 07/31/19 03:48 Ur Specific [place] 1.009 (1.010-1.025) L 07/31/19 11:30
--- NOTE | 2019-08-01 15:19 | Internal Med Progress Note ---
Hospitalist Progress Note - Encounter Date of Encounter: 08/01/19 Time of Encounter: 15:17 - Subjective Interval History: Seen at bedside this morning. No complaints. Says he is largely back to normal, however, feels unsteady on his feet. PT recommending rehabilitation. - Exam Vitals: Temp Pulse Resp BP Pulse Ox 97.8 F 91 16 129/84 92 08/01/19 11:52 08/01/19 11:52 08/01/19 11:52 08/01/19 11:52 08/01/19 11:52 Exam: General: Ill-appearing and in no acute distress HEENT: No erythema of posterior pharynx. No exudates. Lymphatics: No mandibular or cervical lymphadenopathy Cardiovascular: RRR. No murmurs. No chest wall tenderness. Lungs: Clear to auscelltation bilaterally. Regular chest rise. Abdomen: Non-tender. No rebound or gaurding. Nl bowel sounds. Extremities: No edema. 2+ pulses radial and pedal pulses Skin: No rahses, abrasions, or contusions. Nl cap refill. Psych: Nl attention. A&Ox3 Neuro: laundry presser II-XII intact. 5/5 strength. Sensation to light touch and pinprick intact. - Assessment and Plan (1) Concern about stroke without diagnosis Current Visit: Yes Status: Acute Assessment and Plan: Patient with history of Parkinson's with baseline dysarthria presents with questionable right-sided facial droop and slurred speech in the setting of normal initial head imaging. -Patient was not a TPA candidate on admission -CT, CTA, end echocardiogram without findings to support a clinical diagnosis of CVA -Neurology was consulted and believe patient is likely at his baseline given dysarthria from Parkinson's, recommend MRI to complete w/u PLAN: - MRI today - F/u carotid dopplers - Continue stroke protocol - Continue home ASA - may need to switch therapies if stroke evident on MRI today - Continue home Simvastatin - will switch to high intensity statin if evidence of CVA - Risk factor management - PT/OT recommending SNF - discussed with patient and family (2) Parkinson disease Current Visit: Yes Status: Acute Assessment and Plan: Continue home medications (3) Depression Current Visit: Yes Status: Acute Assessment and Plan: Continue home medications (4) Hypertension Current Visit: Yes Status: Acute Assessment and Plan: Continue home lisinopril. Blood pressures currently controlled. DVT Prophylaxis: LMWH Internal Medicine: Result - Labs CBC & Chem 7: 07/31/19 03:48 08/01/19 03:38 Labs: BMP 08/01/19 03:38 Sodium 136 Potassium 3.9 Chloride 105 Carbon Dioxide 23 BUN 15 Creatinine 1.00 Glucose 96 Calcium 9.0 - ABG Interpretation ABG results: PT/INR, D-dimer PT 11.7 Seconds (9.4-12.1) 07/30/19 13:11 Consult Discharge Plan - Plan Referrals: [place],Sal Stapleton MD [Primary Care Provider] - (3) Depression Qualifiers: Depression Type: unspecified Qualified Code(s): F32.9 - Major depressive disorder, single episode, unspecified (4) Hypertension Qualifiers: Hypertension type: essential hypertension Qualified Code(s): I10 - Essential (primary) hypertension
[2019-08-01] MEDS: OLANZapine 10 MG TAB.RAPDIS PO SCH (20:25)
[2019-08-02] MEDS: *HR* Enoxaparin 40 MG/0.4 ML SYRINGE SQ SCH (05:36)
[2019-08-02] MEDS: BuPROPion XL (24 HR) 150 MG TABLET PO SCH (09:07)
[2019-08-02] MEDS: Aspirin Enteric Coated 81 MG Tablet PO SCH (09:07)
[2019-08-02] MEDS: Cholecalciferol (D-3) 1,000 UNIT (25MCG) TABLET PO SCH (09:07)
[2019-08-02] MEDS: Vitamin E 200 UNIT (90MG) CAPSULE PO SCH (09:08)
[2019-08-02] MEDS: rOPINIRole 1 MG TABLET PO SCH ×2 (09:08→15:10)
[2019-08-02] MEDS: Carbidopa/Levodopa 25/100 TABLET PO SCH ×2 (09:09→15:10)
[2019-08-02] MEDS: Multivit/Ca/Min/Fe/FA 1 TAB TABLET PO SCH (09:09)
[2019-08-02] MEDS: *HR* Acetylcysteine 20% 600 MG/3 ML ORAL SYRINGE PO SCH ×2 (09:10→15:11)
--- NOTE | 2019-08-02 10:39 | Neurology Progress Note ---
<Arron Green J - Last Filed: 08/02/19 15:14> Date of Encounter: 08/02/19 Time of Encounter: 10:33 Assessment and Plan (1) Slurred speech Current Visit: Yes Status: Acute Mri of the brain was negative for an acute infarct. At this time it is our impression that the slurred speech was a result of the patient's Parkinson's. We are not recommending any changes to the patient's home dose of Sinemet. Continue with aspirin and Plavix. F/u with Neurology on d/c. In regards to imaging finding indicating large ventricles. We feel most likely at this time that this is 2/2 atrophy of the brain. Neurology will sign off. Subjective Principal diagnosis: slurred speech Interval history: The chart was reviewed and the patient was seen at the bedside today. No acute developments overnight. Discussed MRI brain findings and need for neurology f/u Objective - Constitutional Vitals: Temp Pulse Resp BP Pulse Ox 97.8 F 69 16 120/72 97 08/02/19 06:43 08/02/19 06:43 08/02/19 06:43 08/02/19 06:43 08/02/19 05:30 Exam: Examination: General Examination: *CONSTITUTIONAL: Alert and oriented x3, no acute distress *GENERAL APPEARANCE OF PATIENT 74 elderly M who appears overall healthy and appears stated age *EYES: pupils equal, round, reactive to light and accommodation, conjunctiva clear without masses or ulcerations, fundi normal. *CARDIOVASCULAR: no peripheral edema, distal temperature normal, dorsalis pedis pulses normal. Refer to vital signs * MUSCULOSKELETAL: *GAIT AND STATION: shuffling gait and bradykinesia with movement *ASSESSMENT OF MUSCLE STRENGTH IN THE UPPER AND LOWER EXTREMITIES b ilateral deltoid, bicep, tricep, rehabilitation liaison strength, hip flexors ,anterior tibialis, dorsoflexion of the foot 5/5 *MUSCLE TONE IN THE UPPER AND LOWER EXTREMITIES Resting tremor present in the right hand, decreased amplitude and dysrhythmic movement in b/l hands Neurological: *ORIENTATION to person, situation, time and place *LANGUAGE AND FUNCTION no significant aphasia but speech is slurred which is chronic with h/o Parkinsons *ATTENTION AND CONCENTRATION are normal *LANGUAGE FUNCTION no significant aphasia *FUND OF KNOWLEDGE aware of current events, past history, vocabulary *MENTAL attention span and concentration normal. *CN II optic fundi were normal, no papilledema noted. *CN III,IV, PERRLA extraocular eye movements were full, no nystagmus and no ptosis noted. *CN V shows normal sensation and jaw opens symmetrically but has masked facies *CN VII shows normal facial movement symmetrically, upper and lower bilate rally. *CN VIII shows no significant hearing loss on exam *CN IX-Xpalate elevated symmetrically *CN XI normal strength in the sternocleidomastoid muscles, symmetrical shoulder shrugging. *CN XII tongue protruded in the midline, with normal strength and movement. *SENSORY EXAMINATION pinprick and light touch intact *REFLEXES: deep tendon reflexes were normal and symmetrical , grade 1/4 diffusely, no pathological reflexes were noted. *CEREBELLAR TESTING normal finger to nose, heel/knee/mendieta *PAIN LEVEL 0/10 Results - Laboratory Findings CBC and BMP: 07/31/19 03:48 08/01/19 03:38 Abnormal lab findings: Abnormal lab results APTT 36.1 Seconds (26.0-36.0) H 07/30/19 13:11 Potassium 3.4 mEq/L (3.5-5.1) L 07/31/19 03:48 Glucose 145 mg/dL (70-105) H 07/31/19 03:48 POC Glucose 102 mg/dL (70-99) H 07/30/19 12:52 HDL Cholesterol 31 mg/dL (40-59) L 07/31/19 03:48 Ur Specific [place] 1.009 (1.010-1.025) L 07/31/19 11:30 Consult Discharge Plan - Plan Instructions: Parkinson's Disease (DC), Depression (DC), Chronic Obstructive Pulmonary Disease (DC), Chronic Hypertension (DC) Additional Instructions: Follow-up appointments: If there is not an appointment listed below, please call your physician and schedule a follow-up appointment. If you have congestive heart failure and your symptoms return, make an appointment with your physician. Medication List: Carry an up to date list of medications you are taking at all time. We have given you an updated medication list including any new medications that you have been prescribed. Please provide that list to your primary provider Symptoms: If your condition changes or you experience any of the following symptoms, notify your physician immediately: Unusual or worsening pain, fever, persistent nausea and vomiting, bleeding, increase in swelling (especially in your legs), sudden weight gain, extreme dizziness, chest pain, increased drainage or redness from a wound or incision. Go to the emergency department if you experience a problem with breathing. Weights: If you have a history of swelling or shortness of breath, weigh yourself daily and notify your physician if you have a weight gain of two or more pounds in one day or 5 or more pounds in a week. If you experience any of the warning signs for stroke: Sudden numbness or weakness of the face, arm or leg; especially on one side of the body, sudden confusion, trouble speaking or understanding, sudden trouble seeing in one or both eyes, sudden trouble walking, dizziness, loss of balance or coordination, sudden sever headache with no cause; Call 911 or go to the emergency room. Stroke is a medical emergency. Some risk factors for stroke: Age, cigarette smoking, diabetes, excessive alcohol consumption, family history, high blood pressure, overweight, physical inactivity, prior stroke, heart attack, diagnosis of carotid artery stenosis or other artery disease. If you smoke, STOP: Smoking or tobacco use significantly increases your risk of heart and lung disease. Your chance of disease greatly increases if you continue to smoke. For more information, call the [place] tobacco quit line for smoking cessation 1-070-OCNA-NOW ( ) Referrals: [facility] [place] [Primary Care Provider] - <Natan Canales - Last Filed: 08/02/19 16:53> Date of Encounter: 08/02/19 Assessment and Plan (1) Slurred speech Current Visit: Yes Status: Acute I have personally performed a [id number] assessment of the patient and have reviewed the PA/DIRECTOR BROADCAST note. My impressions are as follows: I agree with the assessment and plan as stated above by the HOSTING ENGINEER. Is no evidence of acute infarct on the MRI scan of the brain which I did review personally. I am not convinced that he has normal pressure hydrocephalus. 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 I also suspect that his acute confusion and condition upon admission may have had something to do with his medication regimen as delivered at home. I will follow-up with him in my office for ongoing management of his Parkinson's disease and dementia. He may discharge him at your discretion. Subjective Interval history: The chart was reviewed, patient was seen and examined independently. Case was discussed with the HOSTING ENGINEER. I agree with his documentation of the subjective information as stated above. Objective - Constitutional Vitals: Temp Pulse Resp BP Pulse Ox 98.0 F 85 16 112/67 96 08/02/19 14:47 08/02/19 14:47 08/02/19 14:47 08/02/19 14:47 08/02/19 14:47 Exam: I have personally performed a [id number] assessment of the patient and have reviewed the PA/DIRECTOR BROADCAST note. My impressions are as follows: I agree with the documentation of the neurologic examination as stated above. Results - Laboratory Findings CBC and BMP: 07/31/19 03:48 08/01/19 03:38 Abnormal lab findings: Abnormal lab results APTT 36.1 Seconds (26.0-36.0) H 07/30/19 13:11 Potassium 3.4 mEq/L (3.5-5.1) L 07/31/19 03:48 Glucose 145 mg/dL (70-105) H 07/31/19 03:48 POC Glucose 102 mg/dL (70-99) H 07/30/19 12:52 HDL Cholesterol 31 mg/dL (40-59) L 07/31/19 03:48 Ur Specific [place] 1.009 (1.010-1.025) L 07/31/19 11:30
[2019-08-02] MEDS: Budesonide/Formoterol 160/4.5 1 PUFF INH IH SCH (10:51)
[2019-08-02] MEDS: Tiotropium 18 MCG inhalation IH SCH (10:53)
[2019-08-02 14:52] VITALS: BP 112/67
--- NOTE | 2019-08-02 15:06 | Discharge Summary ---
Date of Encounter: 08/02/19 Time of Encounter: 15:01 - Discharge Diagnosis (1) Stroke-like episode Priority: Primary Status: Acute (2) Dysarthria Priority: Secondary Status: Acute (3) Concern about stroke without diagnosis Priority: Secondary Status: Acute (4) Parkinson disease Priority: Secondary Status: Acute (5) Depression Priority: Secondary Status: Acute Qualifiers: Depression Type: unspecified Qualified Code(s): F32.9 - Major depressive disorder, single episode, unspecified (6) Hypertension Priority: Secondary Status: Acute Qualifiers: Hypertension type: essential hypertension Qualified Code(s): I10 - Essential (primary) hypertension Hospital course: Mr. Winters is a 74 year old male with history of Parkinson's with baseline dysarthria presented with questionable right-sided facial droop and slurred speech in the setting of CT and MRI imaging without evidence of acute ischemic event. Neurology was consulted and believe that symptoms are due to his Parkinson's disease and did not recommend and further workup or changes to his medications. However, was evaluated by PT/OT and found to be unsteady on his feet so SNF was recommended. He will follow-up with neurology for his Parkinson's disease management. Discharge discussed with: patient - Time Spent with Patient Total time spent providing and/or coordinating discharge services: 70 minutes - Discharge Medications Prescriptions: Continued Albuterol Sulfate [Ventolin Hfa] 2 puff IH Q6H PRN PRN Reason: Shortness Of Breath Benztropine [Cogentin] 1 mg PO BID Budesonide/Formoterol 160/4.5 [Symbicort 160/4.5] 2 puff IH BIDR Bupropion HCl [Wellbutrin Xl] 300 mg PO DAILY BuPROPion XL (24 HR) [Wellbutrin Xl] 150 mg PO DAILY Calcium Carbonate/Vitamin D3 [Calcium 500 + Vit D Caplet] 1 tab PO BID Carbidopa/Levodopa/Entacapone [Stalevo 150 Tablet] 1 tab PO TID Citalopram Hydrobromide [Citalopram HBr] 10 mg PO DAILY Docusate [Colace] 100 mg PO DAILY Lisinopril [Zestril] 5 mg PO DAILY Multivitamin [One Daily Multivitamin] 1 tab PO DAILY OLANZapine [Olanzapine Odt] 20 mg PO HS Omeprazole [PriLOSEC] 20 mg PO DAILY Ropinirole HCl [Requip] 2 mg PO TID Simvastatin [Zocor] 20 mg PO HS Umeclidinium [place] [Incruse Ellipta] 62.5 mcg IH DAILY Vitamin E Acetate [Vitamin E] 400 unit PO DAILY Acetylcysteine [L-Svwrnq-t-Cysteine] 600 mg PO TID Aspirin [Lo-Dose Aspirin EC] 81 mg PO DAILY Sennosides/Docusate Sodium [Docusate Sodium-Senna Tablet] 1 each PO DAILY PRN PRN Reason: Constipation Trihexyphenidyl HCl 5 mg PO DAILY Home Medications: Albuterol Sulfate [Ventolin Hfa] 2 puff IH Q6H PRN 10/19/18 [History] Benztropine [Cogentin] 1 mg PO BID 10/19/18 [History] BuPROPion XL (24 HR) [Wellbutrin Xl] 150 mg PO DAILY 10/19/18 [History] Budesonide/Formoterol 160/4.5 [Symbicort 160/4.5] 2 puff IH BIDR 10/19/18 [History] Bupropion HCl [Wellbutrin Xl] 300 mg PO DAILY 10/19/18 [History] Calcium Carbonate/Vitamin D3 [Calcium 500 + Vit D Caplet] 1 tab PO BID 10/19/18 [History] Carbidopa/Levodopa/Entacapone [Stalevo 150 Tablet] 1 tab PO TID 10/19/18 [History] Citalopram Hydrobromide [Citalopram HBr] 10 mg PO DAILY 10/19/18 [History] Docusate [Colace] 100 mg PO DAILY 10/19/18 [History] Lisinopril [Zestril] 5 mg PO DAILY 10/19/18 [History] Multivitamin [One Daily Multivitamin] 1 tab PO DAILY 10/19/18 [History] OLANZapine [Olanzapine Odt] 20 mg PO HS 10/19/18 [History] Omeprazole [PriLOSEC] 20 mg PO DAILY 10/19/18 [History] Ropinirole HCl [Requip] 2 mg PO TID 10/19/18 [History] Simvastatin [Zocor] 20 mg PO HS 10/19/18 [History] Umeclidinium [place] [Incruse Ellipta] 62.5 mcg IH DAILY 10/19/18 [History] Vitamin E Acetate [Vitamin E] 400 unit PO DAILY 10/19/18 [History] Acetylcysteine [W-Cbrelk-y-Cysteine] 600 mg PO TID 07/30/19 [History] Aspirin [Lo-Dose Aspirin EC] 81 mg PO DAILY 07/30/19 [History] Sennosides/Docusate Sodium [Docusate Sodium-Senna Tablet] 1 each PO DAILY PRN 07/30/19 [History] Trihexyphenidyl HCl 5 mg PO DAILY 07/30/19 [History] Allergies/Adverse Reactions: Allergy/AdvReac Type Severity Reaction Status Date / Time No Known Allergies Allergy Verified 10/19/18 13:34 Date of admission: 07/30/19 16:46 Primary care physician: Sal Hutchison MD Consults: 07/30/19 16:49 Consult to Neurology [CONS] Routine Consulting Provider: Neurology [facility] Reason for Consult: stroke Call Completed: No 07/30/19 16:50 Consult to Occupational Therapy [CONS] Routine Comment: Evaluate, develop and implement POC Reason for Consult: CVA Stroke Does patient have active BEDREST order?: No Is patient medically & hemodynamically stable?: Yes Consult to Physical Therapy [CONS] Routine Comment: Evaluate, develop and implement POC Reason for Consult: Stroke Dizziness Does patient have active BEDREST order?: No Is patient medically & hemodynamically stable?: Yes 07/30/19 18:13 Consult to Primary Substance Abuse Counselor [CONS] Routine Reason for SW Consult: financial and home needs - Constitutional Vitals: Temp Pulse Resp BP Pulse Ox 98.0 F 85 16 112/67 96 08/02/19 14:47 08/02/19 14:47 08/02/19 14:47 08/02/19 14:47 08/02/19 14:47 Exam: General: Ill-appearing and in no acute distress HEENT: No erythema of posterior pharynx. No exudates. Lymphatics: No mandibular or cervical lymphadenopathy Cardiovascular: RRR. No murmurs. No chest wall tenderness. Lungs: Clear to auscelltation bilaterally. Regular chest rise. Abdomen: Non-tender. No rebound or gaurding. Nl bowel sounds. Extremities: No edema. 2+ pulses radial and pedal pulses Skin: No rahses, abrasions, or contusions. Nl cap refill. Psych: Nl attention. A&Ox3 Neuro: enterprise systems administrator II-XII intact. No facial droop noted. Mild dysarthria. 5/5 strength. Sensation to light touch and pinprick intact. - Patient Status Disposition: Transfer SNF Condition: Good Functional capacity at discharge: uses cane/walker Overall status at discharge: patient is progressing back to baseline - Discharge Instructions Follow Up With: Sal Hutchison MD [Primary Care Provider] - - Diet and Activity Activity: as per physical therapy Diet: advance to your usual diet
--- NOTE | 2019-08-02 15:14 | Physician Discharge Referral ---
ExtendedCare Referral Info Transfer To: SNF Provider in Charge: Natan Crandall MD Provider in Charge after Transfer: PCP Institutional Level of Care: Skilled - Diagnosis (1) Stroke-like episode Priority: Primary Status: Acute (2) Dysarthria Priority: Secondary Status: Acute (3) Concern about stroke without diagnosis Priority: Secondary Status: Acute (4) Parkinson disease Priority: Secondary Status: Acute (5) Depression Priority: Secondary Status: Acute (6) Hypertension Priority: Secondary Status: Acute Prognosis: Good Aware of Diagnosis: Patient Aware of Prognosis: Patient - Transfer Medications Home Medications: Albuterol Sulfate [Ventolin Hfa] 2 puff IH Q6H PRN 10/19/18 [History] Benztropine [Cogentin] 1 mg PO BID 10/19/18 [History] BuPROPion XL (24 HR) [Wellbutrin Xl] 150 mg PO DAILY 10/19/18 [History] Budesonide/Formoterol 160/4.5 [Symbicort 160/4.5] 2 puff IH BIDR 10/19/18 [History] Bupropion HCl [Wellbutrin Xl] 300 mg PO DAILY 10/19/18 [History] Calcium Carbonate/Vitamin D3 [Calcium 500 + Vit D Caplet] 1 tab PO BID 10/19/18 [History] Carbidopa/Levodopa/Entacapone [Stalevo 150 Tablet] 1 tab PO TID 10/19/18 [History] Citalopram Hydrobromide [Citalopram HBr] 10 mg PO DAILY 10/19/18 [History] Docusate [Colace] 100 mg PO DAILY 10/19/18 [History] Lisinopril [Zestril] 5 mg PO DAILY 10/19/18 [History] Multivitamin [One Daily Multivitamin] 1 tab PO DAILY 10/19/18 [History] OLANZapine [Olanzapine Odt] 20 mg PO HS 10/19/18 [History] Omeprazole [PriLOSEC] 20 mg PO DAILY 10/19/18 [History] Ropinirole HCl [Requip] 2 mg PO TID 10/19/18 [History] Simvastatin [Zocor] 20 mg PO HS 10/19/18 [History] Umeclidinium [place] [Incruse Ellipta] 62.5 mcg IH DAILY 10/19/18 [History] Vitamin E Acetate [Vitamin E] 400 unit PO DAILY 10/19/18 [History] Acetylcysteine [D-Dhdeen-o-Cysteine] 600 mg PO TID 07/30/19 [History] Aspirin [Lo-Dose Aspirin EC] 81 mg PO DAILY 07/30/19 [History] Sennosides/Docusate Sodium [Docusate Sodium-Senna Tablet] 1 each PO DAILY PRN 07/30/19 [History] Trihexyphenidyl HCl 5 mg PO DAILY 07/30/19 [History] Allergies/Adverse Reactions: Allergy/AdvReac Type Severity Reaction Status Date / Time No Known Allergies Allergy Verified 10/19/18 13:34 - Respiratory Orders Smoking Cessation: Smoking cessation has been advised. For more information, call the [place] Tobacco Quit Line at 5-187-TZRD-NOW. - Ancillary Orders May use pressure relief devices daily prn - Advance Directives Living Will: No Power of Speech Therapist Technician for Health Care: No Code Status: Full Code - Mobility Orders Chair, Ambulate - Rehabiliation Orders Rehab Potential: Good Rehab Orders: Evaluation for Physical Therapy, Evaluation for Occupational Therapy, Evaluation for Speech Therapy - Treatments Skin tear care topically daily PRN per policy, May check for fecal impaction rectally daily PRN - Diet Orders Regular CERTIFICATION: I certify that the transfer of the above named patient to an Extended Care Facility is necessary for the continuing treatment of the diagnosis listed. The above information is true and accurate reflection of patient's current condition. Confidential - Redisclosure prohibited without a patient's written consent.
== END 2019-08-02 19:05 | DRG 57 ==
LOC: 2NENU 12:35 → EMEROOARM 12:35 → SUATTDRO 16:46 → 2NENU 17:07
PROVIDERS: ADMIT Internal Medicine; ATTEND Internal Medicine

== ENCOUNTER 2020-06-18 16:03 | Inpatient (IN) ==
[2020-06-18 16:45] LABS: Basophils % 0.5 %; Eosinophils # 0.1 K/mcL (0.0-0.6); Eosinophils % 0.7 %; Hematocrit 40.7 % (37.5-50.1); Hemoglobin 13.4 g/dL (12.9-16.9); Immature Granulocytes % 0.2 % (0-4); Lymphocytes # 2.6 K/mcL (0.6-4.6); Lymphocytes % 29.9 %; Mean Corpuscular HGB Conc 32.9 g/dL (31.6-35.5); Mean Corpuscular Hemoglobin 27.9 pg (28.0-33.3); Mean Corpuscular Volume 84.8 fL (83.0-100.0); Monocytes # 0.8 K/mcL (0.0-1.3); Monocytes % 9.6 %; Platelet Count 234 K/mcL (140-400); Red Cell Distribution Width 13.1 % (11.5-14.5); Segmented Neutrophils % 59.1 %; White Blood Count 8.5 K/mcL (4.3-11.1)
[2020-06-18] MEDS ORDERED: Ipratropium/Albuterol Neb 3 ML IH ONE (16:51)
[2020-06-18 17:06] LABS: BUN/Creatinine Ratio 17 (6-26); Blood Urea Nitrogen 17 mg/dL (8-23); Calcium 9.1 mg/dL (8.6-10.3); Carbon Dioxide 24 mEq/L (23-29); Chloride 107 mEq/L (98-107); Glucose 96 mg/dL (70-105); Osmolality,Calculated 287 (280-300); Potassium 3.8 mEq/L (3.5-5.1); Sodium 138 mEq/L (136-145); eGFR For African Americans > 60 (> 60); eGFR For Non-African Americans > 60 (> 60)
[2020-06-18 17:08] LABS: Troponin I < 0.03 ng/mL (< 0.04)
[2020-06-18] MEDS: Nitroglycerin 0.4 MG TAB.SUBL SL PRN ×2 (17:40→17:47)
[2020-06-18] MEDS ORDERED: Naloxone 0.4 MG/ML INJ IVP PRN (17:41)
[2020-06-18] MEDS ORDERED: Ondansetron 4 MG/2 ML VIAL IVP PRN (17:41)
[2020-06-18] MEDS ORDERED: Perflutren Lipid Microsphere 1.3 ML in 0.9 % Sodium Chloride 8.7 ML IVP PRN (17:43)
[2020-06-18] MEDS ORDERED: Ipratropium/Albuterol Neb 3 ML IH PRN (17:43)
[2020-06-18] MEDS ORDERED: MethylPREDNISolone 40 MG/ML VIAL IVP SCH (18:00)
[2020-06-18] MEDS ORDERED: Sennosides/Docusate Sodium TABLET PO PRN (18:11)
[2020-06-18] MEDS: Azithromycin 500 MG in 0.9 % Sodium Chloride 250 ML IVPB SCH (20:38)
[2020-06-18] MEDS: rOPINIRole 1 MG TABLET PO SCH (20:39)
[2020-06-18] MEDS: CARBIDOPA PO SCH (20:41)
[2020-06-18] MEDS: ENTACAPONE PO SCH (20:41)
[2020-06-18] MEDS: LEVODOPA PO SCH (20:41)
[2020-06-18] MEDS: Budesonide/Formoterol 160/4.5 1 PUFF INH IH SCH (22:06)
[2020-06-18] MEDS: Ipratropium/Albuterol Neb 3 ML IH SCH (22:13)
[2020-06-19] MEDS: Ipratropium/Albuterol Neb 3 ML IH SCH ×4 (03:51→21:47)
[2020-06-19 04:13] LABS: Basophils % 0.4 %; Eosinophils # 0.1 K/mcL (0.0-0.6); Eosinophils % 0.7 %; Hematocrit 40.3 % (37.5-50.1); Immature Granulocytes % 0.3 % (0-4); Lymphocytes # 2.4 K/mcL (0.6-4.6); Lymphocytes % 31.5 %; Mean Corpuscular HGB Conc 32.3 g/dL (31.6-35.5); Mean Corpuscular Hemoglobin 27.6 pg (28.0-33.3); Mean Corpuscular Volume 85.6 fL (83.0-100.0); Mean Platelet Volume 11.5 fL (9.4-12.4); Monocytes # 0.7 K/mcL (0.0-1.3); Monocytes % 8.7 %; Neutrophils # 4.5 K/mcL (1.6-8.9); Platelet Count 217 K/mcL (140-400); Red Blood Count 4.71 M/mcL (4.19-5.50); Red Cell Distribution Width 13.2 % (11.5-14.5); Segmented Neutrophils % 58.4 %; White Blood Count 7.6 K/mcL (4.3-11.1)
[2020-06-19 04:31] LABS: BUN/Creatinine Ratio 17 (6-26); Blood Urea Nitrogen 15 mg/dL (8-23); Calcium 8.8 mg/dL (8.6-10.3); Carbon Dioxide 25 mEq/L (23-29); Chloride 106 mEq/L (98-107); Chol/HDL Ratio 4.9 (0-4.9); Glucose 84 mg/dL (70-105); Magnesium 2.3 mg/dL (1.6-2.6); Osmolality,Calculated 288 (280-300); Potassium 3.6 mEq/L (3.5-5.1); Sodium 139 mEq/L (136-145); eGFR For African Americans > 60 (> 60); eGFR For Non-African Americans > 60 (> 60)
[2020-06-19] MEDS: *HR* Enoxaparin 40 MG/0.4 ML SYRINGE SQ SCH (05:55)
[2020-06-19] MEDS ORDERED: Regadenoson 0.4 MG/5 ML SYRINGE IVP ONE (06:03)
[2020-06-19 08:44] LABS: Estimated Average Glucose 120 mg/dl
[2020-06-19] MEDS ORDERED: MethylPREDNISolone 40 MG/ML VIAL IVP SCH (09:00)
[2020-06-19] MEDS ORDERED: NON-FORMULARY MEDICATION 1 EACH EACH (Bupropion Hcl [Wellbutrin Xl] 300 MG) PO SCH (09:00)
[2020-06-19] MEDS ORDERED: NON-FORMULARY MEDICATION 1 EACH EACH (Umeclidinium Bromide [Incruse Ellipta] 62.5 MCG) IH SCH (09:00)
[2020-06-19] MEDS ORDERED: lisinopriL 5 MG TABLET PO SCH (09:00)
[2020-06-19] MEDS: Budesonide/Formoterol 160/4.5 1 PUFF INH IH SCH ×2 (09:24→21:47)
[2020-06-19] MEDS: rOPINIRole 1 MG TABLET PO SCH ×3 (10:01→21:21)
[2020-06-19] MEDS: Aspirin Enteric Coated 81 MG Tablet PO SCH (10:02)
[2020-06-19] MEDS: LEVODOPA PO SCH (10:19)
[2020-06-19] MEDS: ENTACAPONE PO SCH (10:19)
[2020-06-19] MEDS: CARBIDOPA PO SCH (10:19)
[2020-06-19] MEDS ORDERED: lisinopriL 5 MG TABLET PO ONE (10:48)
[2020-06-19] MEDS: Carbidopa/Levodopa 25/100 TABLET PO SCH ×3 (11:46→21:25)
[2020-06-19] MEDS: *HR* Acetylcysteine 20% 600 MG/3 ML ORAL SYRINGE PO SCH ×2 (17:54→21:22)
[2020-06-19] MEDS: Azithromycin 500 MG in 0.9 % Sodium Chloride 250 ML IVPB SCH (17:57)
[2020-06-19] MEDS ORDERED: OLANZapine 10 MG TAB.RAPDIS PO SCH (21:00)
[2020-06-19] MEDS ORDERED: Metoprolol XL (24 HR) Succ 25 MG TAB.ER.24H PO SCH (21:00)
[2020-06-19] MEDS: Metoprolol XL (24 HR) Succ 25 MG TAB.ER.24H PO SCH (21:21)
[2020-06-20] MEDS: Ipratropium/Albuterol Neb 3 ML IH SCH ×3 (04:06→15:10)
[2020-06-20] MEDS: *HR* Enoxaparin 40 MG/0.4 ML SYRINGE SQ SCH (05:23)
[2020-06-20] MEDS: rOPINIRole 1 MG TABLET PO SCH ×2 (08:27→15:32)
[2020-06-20] MEDS: Metoprolol XL (24 HR) Succ 25 MG TAB.ER.24H PO SCH (08:27)
[2020-06-20] MEDS: Aspirin Enteric Coated 81 MG Tablet PO SCH (08:28)
[2020-06-20] MEDS: Carbidopa/Levodopa 25/100 TABLET PO SCH ×2 (08:28→15:32)
[2020-06-20] MEDS: *HR* Acetylcysteine 20% 600 MG/3 ML ORAL SYRINGE PO SCH ×2 (08:29→15:33)
[2020-06-20] MEDS ORDERED: lisinopriL 10 MG TABLET PO SCH (09:00)
[2020-06-20] MEDS ORDERED: lisinopriL 20 MG TABLET PO SCH (09:00)
[2020-06-20] MEDS ORDERED: NON-FORMULARY MEDICATION 1 EACH EACH (Tiotropium Bromide [Spiriva Respimat] 2 PUFF) PO SCH (09:00)
[2020-06-20] MEDS ORDERED: predniSONE 20 MG TABLET PO SCH (09:00)
[2020-06-20] MEDS ORDERED: NON-FORMULARY MEDICATION 1 EACH EACH (Fluticasone/Vilanterol [Breo Ellipta 200-25 Mcg Inh] PO SCH (09:00)
[2020-06-20] MEDS: Budesonide/Formoterol 160/4.5 1 PUFF INH IH SCH (09:47)
[2020-06-20] MEDS ORDERED: 0.9 % Sodium Chloride 2,000 ML ONE (12:56)
[2020-06-20] MEDS ORDERED: ISOVUE-370 200 ML INFUS..BTL ONE (12:56)
[2020-06-20] MEDS ORDERED: Nitroglycerin 1,000 MCG/10 ML VIAL IV ONE (12:56)
[2020-06-20] MEDS ORDERED: *HR* Heparin 10,000 UNIT/10 ML VIAL ONE (12:56)
[2020-06-20] MEDS ORDERED: Heparin 1,000 UNITS/500 mL 500 ML ONE (12:56)
[2020-06-20] MEDS ORDERED: *HR* Midazolam HCl 2 MG/2 ML VIAL ONE (14:04)
[2020-06-20] MEDS ORDERED: *HR* FentaNYL (PF) 100 MCG/2 ML VIAL ONE (14:04)
[2020-06-20] MEDS ORDERED: Azithromycin 250 MG TABLET PO SCH (18:00)
[2020-06-20 18:26] VITALS: BP 150/82
== END 2020-06-20 18:47 | disposition home or self-care (01) | DRG 287 ==
LOC: 3BNU 16:03 → EMEROOARM 16:03 → SUATTDRO 19:19 → 3BNU 20:15
PROVIDERS: ADMIT Internal Medicine; ATTEND Internal Medicine

== ENCOUNTER 2020-08-16 10:27 | Observation (INO) ==
[2020-08-16 11:06] LABS: Basophils % 0.4 %; Eosinophils % 0.4 %; Hematocrit 41.8 % (37.5-50.1); Hemoglobin 13.6 g/dL (12.9-16.9); Immature Granulocytes % 0.3 % (0-4); Lymphocytes # 1.7 K/mcL (0.6-4.6); Lymphocytes % 22.8 %; Mean Corpuscular HGB Conc 32.5 g/dL (31.6-35.5); Mean Corpuscular Hemoglobin 27.8 pg (28.0-33.3); Mean Corpuscular Volume 85.5 fL (83.0-100.0); Mean Platelet Volume 11.7 fL (9.4-12.4); Monocytes # 0.6 K/mcL (0.0-1.3); Monocytes % 7.6 %; Neutrophils # 5.2 K/mcL (1.6-8.9); Platelet Count 267 K/mcL (140-400); Red Blood Count 4.89 M/mcL (4.19-5.50); Red Cell Distribution Width 13.2 % (11.5-14.5); Segmented Neutrophils % 68.5 %; White Blood Count 7.6 K/mcL (4.3-11.1)
[2020-08-16 11:20] LABS: BUN/Creatinine Ratio 16 (6-26); Blood Urea Nitrogen 15 mg/dL (8-23); Calcium 9.4 mg/dL (8.6-10.3); Carbon Dioxide 25 mEq/L (23-29); Chloride 105 mEq/L (98-107); Glucose 105 mg/dL (70-105); Osmolality,Calculated 287 (280-300); Potassium 4.1 mEq/L (3.5-5.1); Sodium 138 mEq/L (136-145); Troponin I < 0.03 ng/mL (< 0.04); eGFR For African Americans > 60 (> 60); eGFR For Non-African Americans > 60 (> 60)
[2020-08-16] MEDS ORDERED: Naloxone 0.4 MG/ML INJ IVP PRN (12:50)
[2020-08-16] MEDS ORDERED: Albuterol 2.5 MG/3 ML NEBULIZER IH PRN (14:11)
[2020-08-16] MEDS: 0.9 % Sodium Chloride 1,000 ML IVC SCH (14:46)
[2020-08-16] MEDS: *HR* Heparin 5,000 UNIT/ML VIAL SQ SCH (18:35)
[2020-08-16] MEDS: Budesonide/Formoterol 160/4.5 1 PUFF INH IH SCH (20:03)
[2020-08-16] MEDS ORDERED: OLANZapine 10 MG TAB.RAPDIS PO SCH (21:00)
[2020-08-17] MEDS: 0.9 % Sodium Chloride 1,000 ML IVC SCH (04:00)
[2020-08-17] MEDS: *HR* Heparin 5,000 UNIT/ML VIAL SQ SCH (04:00)
[2020-08-17] MEDS: Budesonide/Formoterol 160/4.5 1 PUFF INH IH SCH (07:45)
[2020-08-17] MEDS: rOPINIRole 1 MG TABLET PO SCH ×2 (08:45→14:14)
[2020-08-17] MEDS: Carbidopa/Levodopa 25/100 TABLET PO SCH ×2 (08:50→14:14)
[2020-08-17] MEDS ORDERED: Multivit/Ca/Min/Fe/FA 1 TAB TABLET PO SCH (09:00)
[2020-08-17] MEDS ORDERED: lisinopriL 20 MG TABLET PO SCH (09:00)
[2020-08-17] MEDS ORDERED: Metoprolol XL (24 HR) Succ 25 MG TAB.ER.24H PO SCH (09:00)
[2020-08-17] MEDS ORDERED: Aspirin Enteric Coated 81 MG Tablet PO SCH (09:00)
[2020-08-17] MEDS ORDERED: NON-FORMULARY MEDICATION 1 EACH EACH (Tiotropium Bromide [Spiriva Respimat] 2 PUFF) PO SCH (09:00)
[2020-08-17] MEDS ORDERED: Sennosides/Docusate Sodium TABLET PO SCH (09:00)
[2020-08-17] MEDS ORDERED: Aspirin 81 MG TAB.CHEW PO SCH (09:00)
[2020-08-17] MEDS: *HR* Acetylcysteine 20% 600 MG/3 ML ORAL SYRINGE PO SCH ×2 (09:02→16:19)
[2020-08-17] MEDS ORDERED: Tiotropium 18 MCG inhalation IH SCH (10:00)
[2020-08-17 10:50] VITALS: BP 132/69
[2020-08-17] MEDS ORDERED: OLANZapine 5 MG TAB.RAPDIS PO SCH (21:00)
== END 2020-08-17 16:45 | disposition home health service (06) ==
LOC: 3BNU 10:27 → EMEROOARM 10:27 → SUATTDRO 12:42 → 3BNU 13:38
PROVIDERS: ADMIT Pharmacist; ATTEND Internal Medicine